=== PATIENT | female | born 1965 | race African-American/Black ===

== ENCOUNTER 2018-08-28 19:19 | Inpatient (IN) ==
[2018-08-28] MEDS ORDERED: LABETALOL IV ONE ×2 (20:00→21:22)
[2018-08-28] MEDS ORDERED: LABETALOL ONE (20:08)
[2018-08-28 20:47] LABS: BASO# 0.03 X1000 (0.0-0.2); BASO% 0.3 % (0.0-0.8); EOS# 0.25 X1000 (0.0-0.7); EOS% 2.2 % (0.0-10.0); HEMATOCRIT 33.8 % (37.0-47.0); HEMOGLOBIN 10.7 g/dL (12.0-16.0); IMM GRAN# 0.07 X1000 (0.0-0.04); IMM GRAN% 0.6 % (0.0-0.5); LYMPH# 2.88 X1000 (1.2-3.4); LYMPH% 25.7 % (20.5-51.1); MCH 26.1 PG (27-31); MCHC 31.7 g/dL (33-37); MCV 82.4 FL (81-99); MONO# 0.42 X1000 (0.11-0.59); MONO% 3.8 % (1.7-9.3); MPV 9.3 FL (7.4-10.4); NEUT# 7.54 X1000 (1.4-6.5); NEUT% 67.4 % (42.2-75.2); PLT 427 X1000 (130-400); RDW 16.8 % (11.5-14.5); WBC 11.19 X1000 (4.8-10.8)
[2018-08-28] MEDS ORDERED: DUONEB (A & A) INH ONE (20:47)
--- NOTE | 2018-08-28 20:59 | Diag Imaging Result Doc PS360 ---
CHEST-2 VIEWS - 08/28/2018 INDICATION: SOB COMPARISON: 05/27/2018 FINDINGS: There is mild cardiomegaly. There is pulmonary vascular congestion. No visible infiltrates or edema. No pneumothorax or pleural effusion. IMPRESSION: Cardiomegaly. Pulmonary vascular congestion. Electronically signed by Robert Tejeda 08/28/2018 8:56 PM
[2018-08-28] MEDS ORDERED: LASIX IV ONE (21:13)
[2018-08-28 21:23] LABS: ALBUMIN 4.3 g/dL (3.5-5.0); CALCIUM 9.4 mg/dL (8.8-10.2); CREATININE 1.3 mg/dL (0.5-0.9); POTASSIUM 3.8 mmol/L (3.5-5.1); TOTAL BILIRUBIN 0.5 mg/dL (0.20-1.00); TOTAL PROTEIN 8.6 g/dL (6.3-8.3)
[2018-08-28 22:12] LABS: BILIRUBIN URINE NEGATIVE (NEGATIVE); BLOOD URINE NEGATIVE (NEGATIVE); CLARITY CLEAR (CLEAR); COLOR YELLOW; GLUCOSE URINE NEGATIVE (NEGATIVE); KETONE URINE NEGATIVE (NEGATIVE); LEUKOCYTES URINE NEGATIVE (NEGATIVE); NITRITE URINE NEGATIVE (NEGATIVE); PH URINE 6.5; PROTEIN URINE 1+(30 mg/dL) mg/dL (NEGATIVE); SP GRAVITY URINE 1.015; UROBILINOGEN URINE NORMAL
[2018-08-28 22:17] LABS: URINE SOURCE CLEAN CATCH
[2018-08-28 22:18] LABS: URINE BACTERIA NEGATIVE /HFP; URINE CAST NONE SEEN /LPF; URINE CRYSTAL NONE SEEN /HPF; URINE EPITHELIAL CELLS <10 /HPF (<10); URINE RBC <10 /HPF (<10); URINE WBC <10 /HPF (<10); URINE YEAST NONE SEEN /HPF
[2018-08-28] MEDS ORDERED: NITROGLYCERIN TOP ONE (23:14)
[2018-08-28] MEDS ORDERED: APRESOLINE IV ONE ×2 (23:53→23:54)
--- NOTE | 2018-08-28 23:56 | PROVIDER DOCUMENTATION ---
This chart was entered by Olena Abdi Scribe, acting as scribe for Wilfredo Fields MD. HPI-General Adult - General Chief Complaint: B/P Problems Stated Complaint: SOB Time Seen by Provider: 08/28/18 19:30 Source: patient Allergies/Adverse Reactions: Patient Allergies Allergy/AdvReac Type Severity Reaction Status Date / Time No Known Allergies Allergy Verified 05/27/18 20:05 Home Medications: Home Medication List Medication Instructions Recorded Confirmed Last Taken Type Azithromycin [Zithromax Z-[place]] 250 mg PO DIRECTED #1 pkg 05/27/18 Unknown Rx Benzonatate [Tessalon Perle] 100 mg PO TID PRN #30 cap 05/27/18 Unknown Rx Lisinopril 10 mg PO DAILY 05/27/18 05/27/18 Unknown History Lisinopril 10 mg PO DAILY #30 tab 05/27/18 Unknown Rx - History of Present Illness -Gen Adult Nature of Presenting Problems: pt is a 52 yr old female presenting with 2 month complaint of shortness of riley ath, 2 week complaint of out of bp meds. pt reports shortness of breath is worsening over last 2 days, now sleeping upright, unable to lie falt. pt reports bronchitits 2 months ago. pt denies fever/chills, no chest pain or shortness of breath Location of Pain/Injury: reports: none Pain Radiation: reports: no radiation Quality of Pain: reports: none Severity: reports: moderate Onset/Duration: reports: other (2 months) Timing: reports: changing over time, getting worse Context/Activities at Onset: reports: light activity Modifying Factors: improves with: exercise (worsens), lying down (worsens), other (sitting upright improves) Associated Symptoms: reports: cough, shortness of breath, other (htn). denies: chest pain, dizziness, EENT symptoms, fatigue, fever/chills, headaches, sinus congestion/drainage, weakness Similar Symptoms Previously?: No Recently seen or treated by another doctor?: Yes Review of Systems - Adult - REVIEW OF SYSTEMS - ADULT Constitutional: denies: chills, fever Eyes: reports: no symptoms reported Ears, Nose, Mouth & Throat: denies: ear pain, sinus problem, throat pain Cardiovascular: denies: chest pain, palpitations, syncope Respiratory: reports: dyspnea on exertion, shortness of breath. denies: cough, wheezing Gastrointestinal: denies: diarrhea, nausea, vomiting Genitourinary: denies: dysuria, frequency, flank pain Musculoskeletal: denies: back pain, neck pain Integumentary: reports: no symptoms reported Neurological: denies: dizziness/vertigo, headache/migraines Psychiatric: reports: no symptoms reported Endocrine: reports: no symptoms reported Hematologic/Lymphatic: reports: no symptoms reported Allergic/Immunologic: reports: no symptoms reported All Other Systems: Reviewed and Negative Past History - Adult - PAST MEDICAL HISTORY-ADULT Review of Records: reports: Nursing Assessment Review, Medications Reviewed, Social history reviewed & non-contributory. Major Childhood Illnesses: reports: denies history Cardiovascular: reports: denies history Respiratory: reports: denies history Gastrointestinal: reports: denies history Obstetrical/Gynecological: reports: denies history Genitourinary: reports: denies history Musculoskeletal: reports: denies history Neurological: reports: denies history Endocrine/Immune: reports: denies history Other Conditions: reports: denies history - IMMUNIZATION STATUS Childhood Immunizations: See Nurse Assessment Flu Vaccine: See Nurse Assessment - FAMILY HISTORY Family History: reviewed, not pertinent - SOCIAL HISTORY Smoking: denies Substance Use: denies Living Situation: family Physical Exam-General - PHYSICAL EXAM-ADULT Initial Vital Signs Reviewed: Yes - CONSTITUTIONAL General Appearance: alert, no apparent distress, obese, anxious - EYES Eyes: PERRL/EOMI - HEAD, EARS, NOSE, MOUTH & THROAT HENMT: normocephalic/atraumatic, moist mucous membranes, normal ENT inspection - NECK Neck: non-tender, full range of motion, supple - RESPIRATORY Respiratory: chest non-tender, lungs clear, no respiratory distress, no accessory muscle use, decreased breath sounds (minimally) - CARDIOVASCULAR Cardiovascular: normal peripheral pulses, regular rate, rhythm, no edema - GASTROINTESTINAL (ABDOMEN) Abdominal Exam: normal bowel sounds, non tender, soft - LYMPHATIC Lymphatic: no adenopathy - MUSCULOSKELETAL Back Exam: normal inspection, no CVA tenderness, no vertebral tenderness Extremity: normal range of motion, non-tender, normal gait, normal inspection - SKIN Integumentary: normal color, normal turgor, warm/dry - NEUROLOGIC Neurologic: grossly normal, no motor/sensory deficits - PSYCHIATRIC Psych/Mental Status: normal mood/affect Progress - PLAN OF CARE/RESULTS Progress/Plan/Lab Results: Vital Signs - 8 hr 08/28/18 19:20 Temperature 98 F Pulse Rate 107 H Respiratory Rate 25 H Blood Pressure 214/140 O2 Sat by Pulse Oximetry 97 Orders Category Date Time Status CHEST-2 VIEWS [RAD] Stat Exams 08/28/18 19:59 Ordered BNP [PRO B-NATRIURETIC PEPTIDE] Stat Lab 08/28/18 19:59 Uncollected CBC WITH DIFF [HEME] Stat Lab 08/28/18 19:59 Uncollected COMPREHENSIVE METABOLIC PANEL [CHEM] Stat Lab 08/28/18 19:[address] W/POSS RFLX CULT [URINALYSIS] Stat Lab 08/28/18 19:59 Uncollected Labetalol Med 08/28/18 20:00 Discontinued 20 mg IV NOW ONE Result Diagrams: 08/28/18 20:25 08/28/18 20:25 - CONSULTS/PCP/HOSPITALIST Notification #1 *Consult/PCP/Hospitalist*: [place] Time Discussed: 23:49 Consult Disposition: Admit Departure - Departure Date of Disposition Decision: 08/28/18 Time of Disposition Decision: 23:00 DIAGNOSIS: Flash pulmonary edema Hypertension Qualifiers: Hypertension type: essential hypertension Qualified Code(s): I10 - Essential (primary) hypertension Congestive heart failure (CHF) Qualifiers: Heart failure type: unspecified Heart failure chronicity: unspecified Qualified Code(s): I50.9 - Heart failure, unspecified Disposition: ADMITTED INPATIENT 09 Certified Medical Emergency: Emergent Condition: Good Referrals and Follow-Ups: None,PCP [Primary Care Provider] - - Critical Care Note This patient required my direct & personal management of CC.: Yes Total Time (mins): 40 Critical Care Statement: This patient required my direct personal management to treat or rule out processes, the absence of which, could potentiallly result in sudden, clinically significant life or limb threatening deterioration. Attestation - Physician/ LUIS FERNANDO Attestation Patient care was provided by Advanced Practice Provider:: No The physician spent face to face time with patient:: Yes Advanced Practice Provider documentation review:: Supervising physician onsite and consulted in the evaluation and care of this patient. The physician did have a face to face encounter with the patient. This chart was documented by the indicated scribe, (Olena Abdi Scribe) and accurately reflects the services I performed and decisions made by me, Wilfredo Fields MD, as attested by the provider's signature.
[2018-08-29] MEDS: ATIVAN IV PRN (02:27)
[2018-08-29] MEDS: NITROGLYCERIN TOP SCH ×3 (05:07→20:45)
--- NOTE | 2018-08-29 09:25 | EKG Report ---
Test Performed on : 08/28/2018 7:37:54 PM Test Reason : ER Blood Pressure : / mmHG Vent. Rate : 106 BPM Atrial Rate : 106 BPM P-R Int : 152 ms QRS Dur : 078 ms QT Int : 344 ms P-R-T Axes : 055 014 136 degrees QTc Int : 456 ms Sinus tachycardia. Possible Left atrial enlargement Nonspecific T wave abnormality Abnormal ECG When compared with ECG of 27-MAY-2018 19:37, No significant change was found Unconfirmed Result
[2018-08-29] MEDS ORDERED: PRINIVIL PO SCH (09:45)
--- NOTE | 2018-08-29 10:07 | HISTORY AND PHYSICAL ---
PRIMARY CARE PHYSICIAN: None. CHIEF COMPLAINT: Shortness of breath over the last 2 months, worse over last 2 days, with inability to lie flat and increased bilateral lower extremity edema. HISTORY OF PRESENTING ILLNESS: This is a 52-year-old female, who presents to [facility] ER with complaints of shortness of breath over the last 2 months, worse over last 2 days, with an inability to lie flat using 2 pillows for her orthopnea. Also noted some increased bilateral lower extremity edema. Workup in the emergency room showed when she arrived she had a blood pressure of 214/140. Chest x-ray showed cardiomegaly and pulmonary vascular congestion. Creatinine was 1.3. Her proBNP was 771 and her urinalysis was negative. In the emergency room, she received 40 mg of labetalol IV x1 and 20 mg of labetalol IV x1, Apresoline 5 mg IV x2 doses, Lasix 60 mg IV x1. So, she now has a blood pressure of 187/94, and was admitted to the medical unit for further evaluation and treatment. PAST MEDICAL HISTORY: Hypertension and GERD. PAST SURGICAL HISTORY: A right knee surgery secondary to injury. FAMILY HISTORY: Reviewed and noncontributory. SOCIAL HISTORY: She currently lives with family. Denies any tobacco, alcohol or illicit drug use. ALLERGIES: She has no known drug allergies. HOME MEDICATIONS: She takes lisinopril 10 mg p.o. daily. LABORATORY DATA: Showed a white blood cell count of 11.19, hemoglobin 10.7, hematocrit 33.8, platelets 427. Sodium 140, potassium 3.8, chloride 104, CO2 22. BUN of 14 with a creatinine of 1.3, glucose of 114. ProBNP of 771. Urinalysis was negative. IMAGING DATA: Chest x-ray with cardiomegaly and pulmonary vascular congestion. EKG with sinus tachycardia at 106. REVIEW OF SYSTEMS: She denied any fever, chills, blurred vision, dizziness. She denied any chest pain. She had shortness of breath, two pillow orthopnea, bilateral lower extremity edema. Denied any diarrhea. She had some nausea and vomiting after she arrived. Denied any burning or hurting with urination. PHYSICAL EXAMINATION: VITAL SIGNS: On arrival, she had a temperature of 98 degrees, pulse 107, respirations 25, blood pressure 214/140, satting 97% on room air. Currently, her blood pressure is down to 187/94, satting 100% on 2 L via nasal cannula. GENERAL: This is a 52-year-old, morbidly obese female, who is lying in the bed and answers questions appropriately. HENT: Normocephalic, atraumatic. Normal ENT inspection. Oropharynx and nares are clear. EYES: Pupils are equal, round, reactive to light and accommodation. Extraocular movements are intact. NECK: Normal inspection, normal range of motion. LUNGS: Clear to auscultation bilaterally with equal lung expansion and chest wall movement. HEART: Regular rate and rhythm. No murmurs, rubs, or gallops. ABDOMEN: Soft, nontender, nondistended. Bowel sounds are present x4 quadrants. MUSCULOSKELETAL: She has 5/5 strength x4 extremities. NEUROLOGICAL: The cranial nerves 2-12 appear grossly intact. ASSESSMENT: 1. Flash pulmonary edema. 2. Accelerated hypertension, secondary to #1. 3. Mild acute kidney injury. 4. Possible new onset congestive heart failure. PLAN: She was admitted to the medical unit, placed on telemetry, O2 per protocol. We are going to check an echo today. We will place her on Lasix 40 mg IV q. 12 hours. Continue her home medication. Nitroglycerin 1-1/2 inches topically q. 8 hours. Recheck a CBC, BMP. I am also going to place her on potassium 40 mEq p.o. b.i.d., recheck a CBC and BMP in the a.m. Dictated by SUZANNE Gates for Enzo Hua MD Addendum: Patient seen and examined by myself. Agree with SUZANNE note. It reflects my assessment and plan. Patient is admitted to hospital for flash pulmonary edema secondary to uncontrolled hypertension. Of course will start Lasix and Apresoline and monitor patient closely. Will order an echocardiogram and will go from there. cc: SUZANNE Gates MD [facility]
[2018-08-29] MEDS ORDERED: APRESOLINE IV PRN (10:14)
[2018-08-29] MEDS: LASIX IV SCH ×2 (10:18→21:02)
[2018-08-29] MEDS: KLOR-CON PO SCH ×2 (10:18→20:45)
[2018-08-29] MEDS ORDERED: PNEUMOVAX 23 IM ONE (12:00)
--- NOTE | 2018-08-29 16:37 | ECHO REPORT ---
ORDER DATE: 08/29/2018 INTERPRETING PHYSICIAN: Vik Wong MD ECHOCARDIOGRAPHIC MEASUREMENTS: 1. Interventricular septum 1.4 cm. 2. Left ventricular posterior wall 1.4 cm. 3. Diastolic diameter 4.5 cm. 4. Left atrium 4 cm. 5. Aorta 2.8 cm. SUMMARY OF THE 2-DIMENSIONAL IMAGIN. Aortic valve leaflets were trileaflet. 2. Mitral valve was normal. 3. Tricuspid valve was normal. 4. The aortic valve leaflets not well visualized. 5. Pulmonic valve was normal. 6. There is left atrial enlargement. 7. Mild mitral regurgitation. 8. Mild tricuspid regurgitation. 9. Peak velocity across the tricuspid valve was 3.3 m/sec. 10. Pulmonary artery systolic pressure of 54 mmHg. 11. Normal right ventricular cavity size and function. 12. Normal left ventricular cavity size. 13. Estimated ejection fraction of 65%. 14. There is left ventricular hypertrophy. 15. There is diastolic dysfunction. 16. There is mild mitral regurgitation. 17. There is no pericardial effusion or obvious intracardiac mass or thrombus seen. 18. Peak velocity across the aortic valve less than 2 m/sec by Doppler studies. 19. There is no aortic stenosis or regurgitation. cc: MD Natalie Godfrey CRNP
[2018-08-29] MEDS ORDERED: PRINIVIL PO ONE (22:00)
[2018-08-30] MEDS: NITROGLYCERIN TOP SCH ×3 (06:16→20:15)
[2018-08-30 07:48] LABS: BASO# 0.02 X1000 (0.0-0.2); BASO% 0.2 % (0.0-0.8); EOS# 0.32 X1000 (0.0-0.7); EOS% 2.4 % (0.0-10.0); HEMATOCRIT 36.2 % (37.0-47.0); HEMOGLOBIN 11.2 g/dL (12.0-16.0); IMM GRAN# 0.07 X1000 (0.0-0.04); IMM GRAN% 0.5 % (0.0-0.5); LYMPH# 3.21 X1000 (1.2-3.4); LYMPH% 24.4 % (20.5-51.1); MCH 25.8 PG (27-31); MCHC 30.9 g/dL (33-37); MCV 83.4 FL (81-99); MONO# 1.05 X1000 (0.11-0.59); MPV 9.3 FL (7.4-10.4); NEUT# 8.51 X1000 (1.4-6.5); NEUT% 64.5 % (42.2-75.2); PLT 455 X1000 (130-400); RBC 4.34 XMIL (4.2-5.4); RDW 17.6 % (11.5-14.5); WBC 13.18 X1000 (4.8-10.8)
[2018-08-30 08:00] LABS: CALCIUM 9.1 mg/dL (8.8-10.2); CREATININE 1.5 mg/dL (0.5-0.9); POTASSIUM 4.5 mmol/L (3.5-5.1)
[2018-08-30] MEDS ORDERED: TORADOL IV SCH (09:30)
--- NOTE | 2018-08-30 10:35 | PROGRESS NOTE ---
DATE: 08/30/2018 SUBJECTIVE: The patient reports breathing better. The patient also reports that she is having worsening abdominal pain that has been going on for months but getting worse lastly. She reports that her last bowel movement was this morning. No fever or chills. OBJECTIVE: Vital Signs: Temperature 97.9 degrees, heart rate 81, respiratory rate 18, blood pressure 144/84, and O2 saturation 97% on room air. General: This is a 52-year-old female lying in bed in no acute distress. Cardiovascular: S1, S2 heard. No murmurs, gallops, or rubs. Regular rate and rhythm. Respiratory: There are minimal crackles noted in both pulmonary bases. Overall clear bilaterally to auscultation. No work of breathing noted or using any accessory muscles. Abdomen: Soft. Nontender to palpation. Bowel sounds present. No organomegaly. Extremities: No clubbing, cyanosis, or edema. Peripheral pulses present in both legs. Neurological: Patient is alert and oriented x3. Moves all 4 extremities. LABORATORY DATA: White cell count 13.83, hemoglobin 11.2, hematocrit 36.2 and platelets 455,000 with normal BMP except mild elevation of creatinine of 1.5. ASSESSMENT AND PLAN: 1. Acute diastolic heart failure. That is what the echocardiogram confirmed. It actually showed ejection fraction that is normal at 65%, but as we mentioned before there is diastolic dysfunction noted, but no pericardial effusion or obvious intracardiac mass or thrombus seen. In that regard, I am planning to continue with Lasix 40 mg IV q.12 hours. Clinically, this patient reports feeling and breathing better. 2. Uncontrolled hypertension. The patient is receiving lisinopril that at home she was receiving 10 mg p.o. daily. Currently, she is going to receive 20 mg p.o. twice daily considering that her blood pressure has been in the range of 197 to 220s on admission. I think that that is playing a role definitely in the flash pulmonary edema this patient has developed. In any case, we will continue to monitor this patient closely. 3. Acute kidney injury. There has been a mild elevation of creatinine from 1.3 to 1.5. At this point, I am planning to continue with the same medications. 4. Worsening abdominal pain. Patient reports that she has been having abdominal pain for many months, but she did not seek any medical attention. Now, she reports that the abdominal pain is located mostly around the periumbilical area that is getting worse so I prefer to order a CT of the abdomen without contrast considering her renal function, and we will see what it shows. Also, we will proceed with abdominal ultrasound as well. cc: Enzo Hua MD
[2018-08-30] MEDS: LASIX IV SCH (10:44)
[2018-08-30] MEDS: KLOR-CON PO SCH ×2 (10:44→20:11)
[2018-08-30] MEDS: PRINIVIL PO SCH ×2 (10:44→20:11)
--- NOTE | 2018-08-30 10:45 | Diag Imaging Result Doc PS360 ---
EXAM: CT ABDOMEN/PELVIS W/O CONTRAST - 08/30/2018 HISTORY: worsening abdominal pain TECHNIQUE: CT abdomen/pelvis without contrast. No contrast administered per request the referring provider. COMPARISON: None. FINDINGS: There is some limitation of detail due to the lack of administered contrast. The liver is mildly prominent in size but demonstrates homogeneous attenuation. There are no substantial other abnormalities of the liver, spleen, adrenal glands, or pancreas identified. There are no calcified gallstones or pericholecystic inflammation identified. There are a couple nonobstructing stones in the left kidney. There is no obstructing renal stone or hydronephrosis identified. The left kidney is somewhat smaller than the right. There are no substantial enlarged lymph nodes identified. There is retained debris in stomach, which may relate to recent meal. There is no evidence of bowel obstruction. The appendix is unremarkable. There is a small fat-containing umbilical hernia. There is colonic diverticulosis. There is no evidence of diverticulitis. There is no abnormal bowel wall thickening identified. There is no free air, free fluid, or abscess identified. There is a lumbar spine degenerative changes noted which are most conspicuous at lower lumbar facets on the left. Images of pelvis show no discrete abnormal mass or fluid collection. IMPRESSION: Mild hepatomegaly. No evidence of focal liver lesion. Nonobstructing stones in left kidney. No evidence of obstructing renal stone or hydronephrosis. Mildly atrophic left kidney versus cortical scarring. No bowel obstruction. Unremarkable appendix. Small fat-containing umbilical hernia. Colonic diverticulosis. No evidence of diverticulitis. No abscess. No free air. This exam was performed using automated exposure control, adjustment of mA or kV according to patient size, and/or use of iterative reconstruction technique. Electronically signed by David Arriaza 08/30/2018 10:43 AM
--- NOTE | 2018-08-30 15:39 | Diag Imaging Result Doc PS360 ---
EXAM: US ABDOMEN-COMPLETE - 08/30/2018 HISTORY: abdominal pain TECHNIQUE: Ultrasound abdomen COMPARISON: Prior CT abdomen/pelvis without contrast of 08/30/2018 FINDINGS: There are artifacts from body habitus and bowel gas which limit detail. The gallbladder is visualized and shows no discrete abnormalities. There are no gallstones identified. The technologist reports negative sonographic Snow's sign. The common bile duct is normal caliber at 5 mm. The pancreas is obscured by bowel gas artifacts. There are no discrete abnormalities of the liver or spleen identified. Doppler image shows hepatopedal vein. There is no ascites seen. The left kidney is mildly small. The nonobstructing stones which were seen in the left kidney on the prior CT are less conspicuous on this exam. There is no renal mass or hydronephrosis identified. Abdominal aorta and IVC appear normal caliber. IMPRESSION: Artifacts from body habitus and bowel gas which limit detail. No visible gallbladder abnormality. No evidence of gallstones. Normal caliber common bile duct at 5 mm. Mildly small left kidney. Electronically signed by David Arriaza 08/30/2018 3:37 PM
[2018-08-30] MEDS: TORADOL IV PRN (20:12)
[2018-08-30] MEDS: ATIVAN IV PRN (20:12)
[2018-08-31] MEDS: NITROGLYCERIN TOP SCH (05:27)
[2018-08-31 07:20] LABS: BASO# 0.02 X1000 (0.0-0.2); BASO% 0.2 % (0.0-0.8); EOS% 3.3 % (0.0-10.0); HEMATOCRIT 37.1 % (37.0-47.0); HEMOGLOBIN 11.5 g/dL (12.0-16.0); IMM GRAN# 0.05 X1000 (0.0-0.04); IMM GRAN% 0.4 % (0.0-0.5); LYMPH# 3.39 X1000 (1.2-3.4); LYMPH% 27.8 % (20.5-51.1); MCH 25.8 PG (27-31); MCV 83.2 FL (81-99); MONO# 0.73 X1000 (0.11-0.59); MPV 8.9 FL (7.4-10.4); NEUT# 7.59 X1000 (1.4-6.5); NEUT% 62.3 % (42.2-75.2); PLT 508 X1000 (130-400); RBC 4.46 XMIL (4.2-5.4); RDW 17.4 % (11.5-14.5); WBC 12.18 X1000 (4.8-10.8)
[2018-08-31] MEDS: TORADOL IV PRN (07:33)
[2018-08-31 08:11] VITALS: BP 156/83
[2018-08-31] MEDS: LASIX IV SCH (08:21)
[2018-08-31] MEDS: PRINIVIL PO SCH (08:21)
[2018-08-31] MEDS: KLOR-CON PO SCH (08:21)
[2018-08-31 08:36] LABS: CALCIUM 9.3 mg/dL (8.8-10.2); CREATININE 1.6 mg/dL (0.5-0.9); POTASSIUM 4.9 mmol/L (3.5-5.1)
--- NOTE | 2018-08-31 13:48 | DISCHARGE SUMMARY ---
ADMISSION DATE: 08/29/2018 DISCHARGE DATE: 08/31/2018 PRIMARY CARE PHYSICIAN: Listed as none. ADMISSION DIAGNOSES: 1. Flash pulmonary edema. 2. Accelerated hypertension secondary to #1. 3. Mild acute kidney injury. 4. Possible new onset congestive heart failure. DISCHARGE DIAGNOSES: 1. Acute diastolic heart failure. 2. Uncontrolled hypertension. 3. Acute kidney pain. 4. Abdominal pain ruled out by CT and ultrasound. SUMMARY OF FINDINGS: This is a 52-year-old female who presented to the emergency room with complaints of shortness of breath for the past 2 months that had worsened 2 days prior to arrival with an inability to lie flat, and using 2 pillows for her orthopnea, noticed increased bilateral lower extremity edema. When she arrived, she had a blood pressure of 214/140 and her chest x-ray showed cardiomegaly and pulmonary vascular congestion. She was felt to be in a flash pulmonary edema. She was given in the emergency room 40 mg of labetalol and 20 mg of labetalol, Apresoline 5 mg IV x2 doses, and Lasix 60 mg x1 dose. We did an echocardiogram that showed an ejection fraction of 65% with diastolic dysfunction. We did do an abdomen and pelvic CT that was read as essentially benign. We did an abdominal ultrasound that showed no visible gallbladder abnormality. No evidence of gallstones, and a normal common bile duct. It is now felt that she can safely be discharged home. DISCHARGE MEDICATIONS: 1. Potassium 20 mEq p.o. daily #90 with no refills. 2. Lasix 20 mg p.o. daily #90 with no refills. 3. Lisinopril 20 mg p.o. b.i.d. #60 with 4 refills. 4. Potassium 20 mEq daily #90 with no refills. FOLLOW-UP: She needs to obtain a primary care physician. We will give her the physician referral line to obtain a primary care physician. TIME SPENT: This is a 33 minute discharge. Dictated by SUZANNE Gates for Enzo Hua MD Addendum: Patient seen and examined by myself. Agree with SUZANNE note. It reflects my assessment and plan. Patient is being discharged from hospital in stable condition and advised to find a primary care doctor. cc: SUZANNE Gates MD [facility]
== END 2018-08-31 15:40 | disposition home or self-care (01) | DRG 291 ==
LOC: P.ED 19:19 → P.MEDSURG 08-29 00:14
PROVIDERS: ATTEND Internal Medicine
CPT/HCPCS: 71020; 71046; 74176; 76700; 80048; 80053; 81001; 83690; 83880; 85025; 90732; 93005; 93306; 94640; 94761; 96374; 96375; 96376; 99285; 99291; A9270; C8929; J0360; J1885; J1940; J2060; Q9957